=== PATIENT | female | born 1975 | race Caucasian/White ===

== ENCOUNTER 2021-11-29 14:40 | Emergency (ER) | payer BC ==
[~2021-11-29] VITALS: Ht 160 cm; Wt 107.3 kg
[2021-11-29 17:13] VITALS: BP 138/88; PULSE 79
== END 2021-11-29 17:23 | disposition home or self-care (01) ==
LOC: COL.ER 14:40
PROVIDERS: Personal Emergency Response Attendant
DX: T18.128A Food in esophagus causing other injury, initial encounter (principal)
CPT/HCPCS: J0330; J2704